=== PATIENT | male | born 1995 | race Caucasian/White ===

== ENCOUNTER 2018-11-22 13:53 | Emergency (ER) | payer OTHER ==
--- NOTE | 2018-11-22 15:22 | ED ---
HPI Chest Pain - HPI Summary HPI Summary: This pt is 23 y/o male presenting to [facility] c/o chest pain since 2 days ago. Pt reports 2 days ago he woke up with chest pain around his collar bone. He states he went to Urgent Care yesterday and they thought it was muscular and was advised to call his pin game machine inspector if worse. Today he called his pin game machine inspector because his chest pain was worse with breathing in and out. Pt notes he follows up with a pin game machine inspector since July 2018 because he felt lightheaded then feeling like almost passing out. Pt had a stress test and echocardiogram done, and his follow up appointment for these results is this Wednesday. Pt denies any lightheadedness recently. He describes chest pain is constant waxing and waning , nonradiating. Since 2 days chest pain has been worse with exhaling but today he has chest pain with inhaling and exhaling. Pain is unchnged with moving arms or movement. Denies SOB, abd pain, nausea, vomiting, diarrhea. 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 - History of Current Complaint Chief Complaint: EDChestPainROMI Time Seen by Provider: 11/22/18 14:59 Hx Obtained From: Patient Onset/Duration: Started Days Ago - 2, Still Present Timing: Lasting Days - 2 Current Severity: Moderate Pain Intensity: 4 Pain Scale Used: 0-10 Numeric Chest Pain Location: Diffuse Chest Pain Radiates: No Aggravating Factor(s): Deep Breaths Alleviating Factor(s): Nothing Associated Signs and Symptoms: Positive: Chest Pain. Negative: Shortness of Breath, Fever, Chills, Lightheadedness, Nausea, Abdominal Pain, Vomiting - Allergy/Home Medications Allergies/Adverse Reactions: Allergies Allergy/AdvReac Type Severity Reaction Status Date / Time Sulfa (Sulfonamide AdvReac Hives Verified 11/22/18 14:03 Antibiotics) Home Medications: Home Medications NK [No Home Medications Reported] 11/22/18 [History Confirmed 11/22/18] PMH/Surg Hx/FS Hx/Imm Hx Endocrine/Hematology History: Denies: Hx Diabetes Cardiovascular History: Denies: Hx Congenital Heart Disease - Surgical History Surgery Procedure, Year, and Place: NO PRIOR SURGICAL HISTORY Infectious Disease History: No Infectious Disease History: Denies: Traveled Outside the in Last 30 Days - Family History Known Family History: Negative: Cardiac Disease - Social History Alcohol Use: Occasionally Hx Substance Use: Yes Substance Use Type: Reports: Marijuana - "NONE FOR MANY MONTHS" Smoking Status (MU): Never Smoked Tobacco Review of Systems Negative: Fever, Chills Positive: Chest Pain Negative: Shortness Of Breath Negative: Abdominal Pain, Vomiting, Diarrhea, Nausea Neurological: Other - NEG: lightheadedness All Other Systems Reviewed And Are Negative: Yes Physical Exam - Summary Physical Exam Summary: Appearance: Well-appearing, Well-nourished, lying in bed comfortably Skin: Warm, dry, no obvious rash Eyes: sclera anicteric, no conjunctival pallor ENT: mucous membranes moist, pharynx appears normal Neck: Supple, nontender Respiratory: Clear to auscultation, no signs of respiratory distress Cardiovascular: Normal S1, S2. No murmurs. Normal distal pulses in tibial and radial bilaterally. Abdomen: Soft, nontender, normal active bowel sounds present Musculoskeletal: Normal, Strength/ROM Intact Neurological: A&Ox3, awake and alert, mentation is normal, speech is fluent and appropriate Psychiatric: affect is normal, does not appear anxious or depressed Triage Information Reviewed: Yes Vital Signs On Initial Exam: Initial Vitals Temp Pulse Resp BP Pulse Ox 98.1 F 76 16 145/82 99 11/22/18 13:59 11/22/18 13:59 11/22/18 13:59 11/22/18 13:59 11/22/18 13:59 Vital Signs Reviewed: Yes Diagnostics - Vital Signs Vital Signs Temp Pulse Resp BP Pulse Ox 11/22/18 13:59 98.1 F 76 16 145/82 99 - Laboratory Result Diagrams: 11/22/18 15:28 11/22/18 15:28 Lab Statement: Any lab studies that have been ordered have been reviewed, and results considered in the medical decision making process. - Radiology Chest XR Radiology Interpretation Completed By: Radiologist Summary of Radiographic Findings: IMPRESSION: No active cardiopulmonary disease. Dr. Holbrook has reviewed this report. - EKG 15:12 Cardiac Rate: NL - at 67 bpm EKG Rhythm: Sinus Rhythm Summary of EKG Findings: Consider right ventricular hypertrophy. ST elev, probable normal early repolarization pattern. Re-Evaluation - Re-Evaluation First Eval Re-Evaluation Time: 16:52 Comment: Reviewed lab and CXR results with the pt. He will be discharged home. Chest Pain Course/Dx - Course Assessment/Plan: Pt is 23 y/o male who presents with chest pain since 2 days ago. He states he went to Urgent Care yesterday and they thought it was muscular and was advised to call his pin game machine inspector if worse. Today he called his pin game machine inspector because his chest pain was worse with breathing in and out. He describes chest pain is constant waxing and waning, nonradiating. Labs are unremarkable. Troponin is negative. D-dimer less than 200. Chest XR is negative for cardiopulmonary disease. Pt was discharged home with follow up from PCP if needed. He was instructed to return for any worsening symptoms. - Diagnoses Provider Diagnoses: Non-cardiac chest pain Discharge - Sign-Out/Discharge Documenting (check all that apply): Patient Departure - Discharge home Patient Received Moderate/Deep Sedation with Procedure: No - Discharge Plan Condition: Good Disposition: HOME Patient Education Materials: Noncardiac Chest Pain (ED) Referrals: [facility] [Primary Care Provider] - 1 Week (if not improving) - Billing Disposition and Condition Condition: GOOD Disposition: Home - Attestation Statements Document Initiated by Jaden: Yes Documenting Scribe: Sheila Sanchez Provider For Whom Jaden is Documenting (Include Credential): Kota Holbrook MD Scribe Attestation: Sheila Sahni, scribed for Kota Holbrook MD on 11/22/18 at 1955. Scribe Documentation Reviewed: Yes Provider Attestation: The documentation as recorded by the Sheila damon accurately reflects the service I personally performed and the decisions made by me, Kota Holbrook MD Status of Scribe Document: Viewed
[2018-11-22 15:35] LABS: ABS Basophils 0 10^3/ul (0-0.2); ABS Eosinophils 0.1 10^3/ul (0-0.6); ABS Lymphocytes 1.1 10^3/ul (1.0-4.8); ABS Monocytes 0.3 10^3/ul (0-0.8); ABS Neutrophils 4.1 10^3/ul (1.5-7.7); ABS Nucleated RBC 0 10^3/ul; Eosinophil % 1.1 %; Hematocrit 44 % (42-52); Hemoglobin 14.9 g/dl (14.0-18.0); Lymphocyte % 19.1 %; Mean Corpuscular HGB Conc 34 g/dl (31-36); Mean Corpuscular Hemoglobin 28 pg (27-31); Mean Corpuscular Volume 85 fL (80-94); Mean Platelet Volume 7.6 fL (7.4-10.4); Nucleated Red Blood Cells % 0.1; Platelet Count 215 10^3/ul (150-450); Red Blood Count 5.25 10^6/ul (4.00-5.40); Red Cell Distribution Width 14 % (10.5-15); White Blood Count 5.6 10^3/ul (3.5-10.8)
[2018-11-22 15:54] LABS: Albumin 5.1 g/dL (3.2-5.2); Albumin/Globulin Ratio 2.1 (1-3); BUN/Creatinine Ratio 17.3 (8-20); Calcium 10.1 mg/dL (8.6-10.3); EGFR African American 141.7 (>60); EGFR Non-African American 117.1 (>60); Globulin 2.4 g/dL (2-4); Potassium 4.2 mmol/L (3.5-5.0); Total Bilirubin 0.5 mg/dL (0.2-1.0); Total Protein 7.5 g/dL (6.4-8.9)
[2018-11-22 17:04] VITALS: BP 137/74
== END 2018-11-22 17:06 | disposition home or self-care (01) ==
LOC: ED 13:53
DX: R07.9 Chest pain, unspecified (principal); Z88.2 Allergy status to sulfonamides
CPT/HCPCS: 36415; 71046; 80053; 84484; 85025; 85379; 93005; 99283